=== PATIENT | male | born 1995 | race Two or more races ===

== ENCOUNTER 2018-05-24 15:55 | Emergency (ER) | payer SELFPAY ==
[~2018-05-24] VITALS: Ht 175.3 cm; Wt 72.6 kg
[2018-05-24] MEDS ORDERED: IBUPROFEN 800 MG TABLET PO ONE (17:30)
[2018-05-24] MEDS ORDERED: IBUPROFEN 800 MG TABLET ONE (17:39)
--- NOTE | 2018-05-24 19:00 | NUR ---
mse completed, rx x3 given.Patient discharged to home in stable conditon. Written and verbal after care instructions given. Patient verbalizes understanding of instructions.
[2018-05-24 19:01] VITALS: BP 111/71
== END 2018-05-24 19:02 | disposition home or self-care (01) ==
LOC: ER 16:06
DX: S13.4XXA Sprain of ligaments of cervical spine, initial encounter (principal); S29.011A Strain of muscle and tendon of front wall of thorax, initial encounter; V43.52XA Car driver injured in collision with other type car in traffic accident, initial encounter; Y93.89 Activity, other specified; Y92.410 Unspecified street and highway as the place of occurrence of the external cause; Y99.8 Other external cause status
CPT/HCPCS: 72125; 99284; A4663